=== PATIENT | female | born 1935 | race Caucasian/White ===

== ENCOUNTER → 2019-06-13 | Outpatient (CLI) | payer MEDICARE ==
[~2019-06-13] MED LIST: ADVAIR 100-501 EACH; AMIODARONE HCL200 MG PO; AMLODIPINE BESYL5 MG PO; ASPIR 8181 MG PO; BUSPIRONE HCL10 MG PO; BUSPIRONE HCL5 MG PO; CATAPRES-TTS 31 EA TD; CLONIDINE HCL0.1 MG PO; COLACE100 MG PO; DOCUSATE SODIU100 MG PO; LASIX20 MG PO; LEVAQUIN250 MG PO; LEVOTHYROXINE88 MCG PO; LIDODERM700 MG TD; LOPERAMIDE2 MG PO; LOSARTAN POTAS100 MG PO; MECLIZINE HCL12.5 MG PO; METOPROLOL TART25 MG PO; METRONIDAZOLE500 MG PO; MONTELUKAST SOD10 MG PO; MULTI-VITAMIN1 EACH PO; NEURONTIN100 MG PO; NIFEDIPINE XL30 MG PO; NORCO 5-325 TA1 EACH PO; OMEPRAZOLE40 MG PO; PEPCID20 MG PO; PHENERGAN25 MG/1 ML PO; SUCRALFATE1 GM PO; TEMAZEPAM15 MG PO; TIZANIDINE HCL4 MG PO; ULTRAM50 MG PO; VITAMIN D400 UNIT PO; XANAX0.5 MG PO; eliquis
--- NOTE | 2019-06-13 15:31 | Diagnostic Imaging Report ---
EXAMINATION: CHEST 2 VIEWS INDICATION: Cough COMPARISON: None FINDINGS: LINES/TUBES:None LUNGS:The lungs are well-inflated. No focal consolidation or pulmonary edema. PLEURA:No pleural effusion or pneumothorax. MEDIASTINUM:The cardiomediastinal silhouette appears normal in size and shape. Atherosclerotic calcifications of the thoracic aorta. BONES/SOFT TISSUES:No acute osseous injury. Right shoulder hardware. Mild diffuse osteopenia. ABDOMEN:No free air under the diaphragm. IMPRESSION: No focal pneumonia or pulmonary edema. Signed by: Ila Quiroz MD on 06/13/2019 3:28 PM
== END ==
LOC: RAD 14:39
PROVIDERS: ATTEND Family Medicine
DX: J44.9 Chronic obstructive pulmonary disease, unspecified (principal)
CPT/HCPCS: 71046

== ENCOUNTER 2020-05-05 14:34 | Inpatient (IN) | payer MEDICARE ==
[~2020-05-05] VITALS: Ht 144.8 cm; Wt 48.8 kg
[2020-05-05] MEDS ORDERED: FENTANYL CITRATE/PF 100MCG/2 ML INJ IV ONE (15:00)
[2020-05-05 16:08] LABS: BASOPHILS % 0.5 % (0.0-1.0); EOSINOPHILS # (AUTO) 0.4 (0.0-0.4); EOSINOPHILS % 7.1 % (0.0-6.0); HEMATOCRIT 35.8 % (34.2-44.1); HEMOGLOBIN 11.5 g/dL (12.0-16.0); LYMPHOCYTES # (AUTO) 1.6 (1.0-3.2); LYMPHOCYTES % 29.2 % (18.0-39.1); MEAN CORPUSCULAR HEMOGLOBIN 33.2 pg (28-32); MEAN CORPUSCULAR HGB CONC 32.1 g/dL (31-35); MEAN CORPUSCULAR VOLUME 103.5 fL (81-99); MONOCYTES # (AUTO) 0.5 (0.2-0.8); MONOCYTES % 8.5 % (4.4-11.3); NEUTROPHILS % 54.5 % (38.7-80.0); PLATELET COUNT 280 x10e3/uL (140-360); RED BLOOD COUNT 3.46 x10e6/uL (3.6-5.1); RED CELL DISTRIBUTION WIDTH 13.6 % (11.7-14.4)
[2020-05-05 16:12] LABS: CLARITY,URINE SL CLOUDY (CLEAR); COLOR,URINE YELLOW (YELLOW); KETONES,URINE NEGATIVE (NEGATIVE); LEUKOCYTE ESTERASE ,URINE NEGATIVE (NEGATIVE); NITRITE,URINE NEGATIVE (NEGATIVE); PROTEIN,URINE DIPSTICK TRACE (NEGATIVE); URINE UROBILINOGEN 0.2 mg/dL (0.2 - 1)
[2020-05-05 16:25] LABS: AMORPHOUS SEDIMENT,URINE FEW (FEW); BACTERIA,URINE MODERATE /HPF; EPITHELIAL CELLS,URINE MODERATE /LPF
[2020-05-05 16:31] LABS: ALBUMIN 3.7 g/dL (3.5-5.0); ANION GAP 13.8 mmol/L (8-16); CALCIUM 9.3 mg/dL (8.4-10.2); CREATININE, SERUM 0.96 mg/dL (0.57-1.11); POTASSIUM 4.8 mmol/L (3.5-5.1)
[2020-05-05] MEDS: ONDANSETRON HCL INJ 2MG/ML 2ML 2 MG/ML VIAL IV PRN (17:06)
[2020-05-05] MEDS: MORPHINE SULFATE INJ 2 MG/ML SYR IV PRN (17:06)
[2020-05-05] MEDS ORDERED: LABETALOL HCL100 MG PO (17:12)
[2020-05-05] MEDS ORDERED: AMITRIPTYLINE H10 MG PO (17:12)
[2020-05-05 20:20] VITALS: BP 156/60
[2020-05-05 20:47] VITALS: BP 157/66
[2020-05-05] MEDS: ALPRAZOLAM 0.5 MG TAB PO PRN ×2 (20:50→21:04)
[2020-05-05] MEDS ORDERED: AMITRIPTYLINE HCL 10 MG TAB PO SCH (21:00)
[2020-05-05] MEDS ORDERED: MAGNESIUM HYDROXIDE 30 ML UDC PO PRN (22:00)
[2020-05-05] MEDS ORDERED: CEFTRIAXONE SOD 1 GM 50 ML IV SCH (22:00)
[2020-05-05] MEDS ORDERED: ASPIRIN325 MG PO (22:20)
[2020-05-05] MEDS ORDERED: PHILLIPS' COLO1 EACH PO (22:20)
[2020-05-05] MEDS ORDERED: CENTRUM ADULTS1 EACH PO (22:20)
[2020-05-05] MEDS ORDERED: HYDROCODON-ACE1 EA12 PO (22:20)
[2020-05-05 22:52] VITALS: BP 157/66
[2020-05-05] MEDS: MIRTAZAPINE 15 MG TAB PO SCH (23:00)
[2020-05-05] MEDS: TRAMADOL HCL 50 MG TAB PO SCH (23:00)
[2020-05-05] MEDS: CEFTRIAXONE SOD 1 GM in SODIUM CHLORIDE 0.9% 50ML 50 ML IV SCH (23:58)
[2020-05-06 00:10] VITALS: BP 157/60
[2020-05-06] MEDS ORDERED: SODIUM CHLORIDE 0.9% 250ML 250 ML ONE (00:10)
[2020-05-06] MEDS: MORPHINE SULFATE INJ 2 MG/ML SYR IV PRN ×2 (00:50→06:43)
[2020-05-06] MEDS ORDERED: LIDOPATCH1 EACH TOP (02:13)
[2020-05-06] MEDS ORDERED: CALCIUM + VITA1 EACH (02:13)
[2020-05-06 04:00] VITALS: BP 165/72
[2020-05-06] MEDS: TRAMADOL HCL 50 MG TAB PO SCH ×3 (06:00→23:00)
[2020-05-06] MEDS ORDERED: LEVOTHYROXINE SODIUM 100 MCG TAB PO SCH (06:00)
[2020-05-06 06:35] LABS: ANION GAP 11.9 mmol/L (8-16); BLOOD UREA NITROGEN 13 mg/dL (7-26); BUN/CREATININE RATIO 15 (6-25); CALCIUM 9.2 mg/dL (8.4-10.2); CARBON DIOXIDE 26 mmol/L (22-29); CHLORIDE 103 mmol/L (98-107); CREATININE, SERUM 0.85 mg/dL (0.57-1.11); EST GLOMERULAR FILTRATION RATE > 60 ML/MIN (60-); GLUCOSE 69 mg/dL (74-118); POTASSIUM 3.9 mmol/L (3.5-5.1); SODIUM 137 mmol/L (136-145)
[2020-05-06] MEDS: SALMETEROL/FLUTICASONE 100/50 INH SCH ×2 (07:53→17:53)
[2020-05-06] MEDS: NIFEDIPINE CR 30 MG TAB PO SCH (08:14)
[2020-05-06] MEDS: BUSPIRONE HCL 10 MG TABLET PO SCH (08:14)
[2020-05-06] MEDS: GABAPENTIN 100 MG CAP PO SCH ×3 (08:14→20:04)
[2020-05-06] MEDS: PANTOPRAZOLE SOD 40 MG TABEC PO SCH (08:14)
[2020-05-06] MEDS: LABETALOL HCL 100 MG TAB PO SCH ×2 (08:15→17:00)
[2020-05-06] MEDS: SENNA-S TABLET PO SCH ×2 (08:15→17:53)
[2020-05-06] MEDS: TIZANIDINE HCL 4 MG TAB PO SCH ×2 (08:15→17:57)
[2020-05-06 08:40] VITALS: BP 197/67
[2020-05-06] MEDS ORDERED: ASPIRIN 81 MG CHEW TAB PO SCH (09:00)
[2020-05-06 09:09] VITALS: BP 197/67
[2020-05-06] MEDS ORDERED: LEVOTHYROXINE SODIUM 50 MCG TAB PO ONE (10:00)
[2020-05-06] MEDS: HYDROCODONE/APAP 5MG-325MG TAB PO PRN ×2 (11:53→19:32)
[2020-05-06] MEDS: FENTANYL 25 MCG/HR PATCH TOP SCH (11:53)
[2020-05-06 13:25] VITALS: BP 112/56
[2020-05-06] MEDS: ENOXAPARIN SOD INJ 40 MG/0.4 ML SYR SC SCH (17:57)
[2020-05-06 18:24] VITALS: BP 118/51
[2020-05-06] MEDS: MIRTAZAPINE 15 MG TAB PO SCH (20:04)
[2020-05-06] MEDS: CEFTRIAXONE SOD 1 GM in SODIUM CHLORIDE 0.9% 50ML 50 ML IV SCH (22:30)
[2020-05-07] VITALS: BP 150/80
[2020-05-07] MEDS: TRAMADOL HCL 50 MG TAB PO SCH ×4 (00:20→21:13)
[2020-05-07] MEDS: MORPHINE SULFATE INJ 2 MG/ML SYR IV PRN (00:40)
[2020-05-07] MEDS: LEVOTHYROXINE SODIUM 50 MCG TAB PO SCH (06:08)
[2020-05-07] MEDS: SALMETEROL/FLUTICASONE 100/50 INH SCH ×2 (07:18→21:20)
[2020-05-07 07:20] VITALS: BP 150/80
[2020-05-07 08:31] VITALS: BP 155/61
[2020-05-07] MEDS: PANTOPRAZOLE SOD 40 MG TABEC PO SCH (09:03)
[2020-05-07] MEDS: GABAPENTIN 100 MG CAP PO SCH ×3 (09:04→21:00)
[2020-05-07] MEDS: BUSPIRONE HCL 10 MG TABLET PO SCH (09:04)
[2020-05-07] MEDS: SENNA-S TABLET PO SCH ×2 (09:05→17:00)
[2020-05-07] MEDS: NIFEDIPINE CR 30 MG TAB PO SCH (09:05)
[2020-05-07] MEDS: LABETALOL HCL 100 MG TAB PO SCH ×2 (09:06→17:00)
[2020-05-07] MEDS: TIZANIDINE HCL 4 MG TAB PO SCH ×2 (09:06→17:00)
[2020-05-07 12:09] VITALS: BP 128/61
[2020-05-07 16:10] VITALS: BP 124/57
[2020-05-07] MEDS: ENOXAPARIN SOD INJ 40 MG/0.4 ML SYR SC SCH (17:00)
[2020-05-07 20:21] VITALS: BP 112/55
[2020-05-07] MEDS: MIRTAZAPINE 15 MG TAB PO SCH (21:00)
[2020-05-07] MEDS: CEFTRIAXONE SOD 1 GM in SODIUM CHLORIDE 0.9% 50ML 50 ML IV SCH (22:30)
[2020-05-08] VITALS (7 sets, daily range): BP systolic 98–162; BP diastolic 46–62
[2020-05-08] MEDS: LEVOTHYROXINE SODIUM 50 MCG TAB PO SCH (05:07)
[2020-05-08] MEDS: TRAMADOL HCL 50 MG TAB PO SCH ×3 (05:07→21:19)
[2020-05-08] MEDS: SALMETEROL/FLUTICASONE 100/50 INH SCH ×2 (06:27→20:45)
[2020-05-08] MEDS: PANTOPRAZOLE SOD 40 MG TABEC PO SCH (08:44)
[2020-05-08] MEDS: BUSPIRONE HCL 10 MG TABLET PO SCH (08:44)
[2020-05-08] MEDS: GABAPENTIN 100 MG CAP PO SCH ×3 (08:44→21:19)
[2020-05-08] MEDS: SENNA-S TABLET PO SCH ×2 (08:45→16:47)
[2020-05-08] MEDS: TIZANIDINE HCL 4 MG TAB PO SCH ×2 (08:45→16:48)
[2020-05-08] MEDS: LABETALOL HCL 100 MG TAB PO SCH ×3 (09:00→16:48)
[2020-05-08] MEDS: HYDROCODONE/APAP 5MG-325MG TAB PO PRN (09:40)
[2020-05-08] MEDS: MORPHINE SULFATE INJ 2 MG/ML SYR IV PRN ×3 (13:40→23:45)
[2020-05-08] MEDS: NIFEDIPINE CR 30 MG TAB PO SCH (16:43)
[2020-05-08] MEDS: ENOXAPARIN SOD INJ 40 MG/0.4 ML SYR SC SCH (16:49)
[2020-05-08] MEDS: MIRTAZAPINE 15 MG TAB PO SCH (21:19)
[2020-05-08] MEDS: CEFTRIAXONE SOD 1 GM in SODIUM CHLORIDE 0.9% 50ML 50 ML IV SCH (21:37)
[2020-05-08] MEDS: ALPRAZOLAM 0.5 MG TAB PO PRN (23:45)
[2020-05-09] VITALS: BP 153/60
[2020-05-09 04:00] VITALS: BP 134/48
[2020-05-09] MEDS: LEVOTHYROXINE SODIUM 50 MCG TAB PO SCH (05:48)
[2020-05-09] MEDS: TRAMADOL HCL 50 MG TAB PO SCH ×3 (06:01→21:43)
[2020-05-09 06:23] LABS: BASOPHILS # (AUTO) 0.1 (0.0-0.1); BASOPHILS % 1.1 % (0.0-1.0); EOSINOPHILS # (AUTO) 0.4 (0.0-0.4); EOSINOPHILS % 8.9 % (0.0-6.0); HEMATOCRIT 33.2 % (34.2-44.1); HEMOGLOBIN 10.4 g/dL (12.0-16.0); LYMPHOCYTES # (AUTO) 1.8 (1.0-3.2); LYMPHOCYTES % 38.9 % (18.0-39.1); MEAN CORPUSCULAR HEMOGLOBIN 33.2 pg (28-32); MEAN CORPUSCULAR HGB CONC 31.3 g/dL (31-35); MEAN CORPUSCULAR VOLUME 106.1 fL (81-99); MONOCYTES # (AUTO) 0.6 (0.2-0.8); MONOCYTES % 11.7 % (4.4-11.3); NEUTROPHILS # (AUTO) 1.9 (2.1-6.9); NEUTROPHILS % 39.4 % (38.7-80.0); PLATELET COUNT 246 x10e3/uL (140-360); RED BLOOD COUNT 3.13 x10e6/uL (3.6-5.1); RED CELL DISTRIBUTION WIDTH 13.8 % (11.7-14.4)
[2020-05-09 06:55] LABS: ANION GAP 13.2 mmol/L (8-16); CREATININE, SERUM 0.93 mg/dL (0.57-1.11); POTASSIUM 4.2 mmol/L (3.5-5.1)
[2020-05-09] MEDS: SALMETEROL/FLUTICASONE 100/50 INH SCH ×2 (07:20→17:13)
[2020-05-09 08:00] VITALS: BP 132/54
[2020-05-09] MEDS: GABAPENTIN 100 MG CAP PO SCH ×3 (09:15→21:43)
[2020-05-09] MEDS: BUSPIRONE HCL 10 MG TABLET PO SCH (09:15)
[2020-05-09] MEDS: PANTOPRAZOLE SOD 40 MG TABEC PO SCH (09:15)
[2020-05-09] MEDS: SENNA-S TABLET PO SCH ×2 (09:16→16:51)
[2020-05-09] MEDS: NIFEDIPINE CR 30 MG TAB PO SCH (09:16)
[2020-05-09] MEDS: TIZANIDINE HCL 4 MG TAB PO SCH ×2 (09:17→16:53)
[2020-05-09] MEDS: FENTANYL 25 MCG/HR PATCH TOP SCH (09:21)
[2020-05-09] MEDS: LABETALOL HCL 100 MG TAB PO SCH ×2 (09:21→16:52)
[2020-05-09 10:01] VITALS: BP 132/54
[2020-05-09 16:00] VITALS: BP 134/38
[2020-05-09] MEDS: ENOXAPARIN SOD INJ 40 MG/0.4 ML SYR SC SCH (16:53)
[2020-05-09] MEDS: HYDROCODONE/APAP 5MG-325MG TAB PO PRN ×2 (19:37→20:03)
[2020-05-09 20:00] VITALS: BP 153/60
[2020-05-09] MEDS: CEFTRIAXONE SOD 1 GM in SODIUM CHLORIDE 0.9% 50ML 50 ML IV SCH (21:43)
[2020-05-09] MEDS: MIRTAZAPINE 15 MG TAB PO SCH (21:43)
[2020-05-09] MEDS: ALPRAZOLAM 0.5 MG TAB PO PRN (23:06)
[2020-05-09] MEDS: MORPHINE SULFATE INJ 2 MG/ML SYR IV PRN (23:06)
[2020-05-10] VITALS (8 sets, daily range): BP systolic 104–145; BP diastolic 46–65
[2020-05-10] MEDS: TRAMADOL HCL 50 MG TAB PO SCH ×3 (06:00→21:40)
[2020-05-10] MEDS: LEVOTHYROXINE SODIUM 50 MCG TAB PO SCH (06:00)
[2020-05-10] MEDS: SALMETEROL/FLUTICASONE 100/50 INH SCH ×2 (06:50→18:35)
[2020-05-10] MEDS: BUSPIRONE HCL 10 MG TABLET PO SCH (08:42)
[2020-05-10] MEDS: LABETALOL HCL 100 MG TAB PO SCH ×2 (08:42→16:52)
[2020-05-10] MEDS: GABAPENTIN 100 MG CAP PO SCH ×3 (08:42→21:40)
[2020-05-10] MEDS: SENNA-S TABLET PO SCH ×2 (08:42→16:51)
[2020-05-10] MEDS: NIFEDIPINE CR 30 MG TAB PO SCH (08:42)
[2020-05-10] MEDS: TIZANIDINE HCL 4 MG TAB PO SCH ×2 (08:43→16:52)
[2020-05-10] MEDS: PANTOPRAZOLE SOD 40 MG TABEC PO SCH (09:36)
[2020-05-10] MEDS: HYDROCODONE/APAP 5MG-325MG TAB PO PRN ×2 (11:11→15:45)
[2020-05-10] MEDS: FENTANYL 50 MCG/HR PATCH TOP SCH (12:02)
[2020-05-10] MEDS: LIDOCAINE 4% PATCH TP SCH (12:02)
[2020-05-10] MEDS: ENOXAPARIN SOD INJ 40 MG/0.4 ML SYR SC SCH (16:52)
[2020-05-10] MEDS: MIRTAZAPINE 15 MG TAB PO SCH (21:40)
[2020-05-11] VITALS (8 sets, daily range): BP systolic 106–138; BP diastolic 47–94
[2020-05-11] MEDS: HYDROCODONE/APAP 5MG-325MG TAB PO PRN (00:29)
[2020-05-11 06:08] LABS: BASOPHILS # (AUTO) 0.1 (0.0-0.1); BASOPHILS % 1.1 % (0.0-1.0); EOSINOPHILS # (AUTO) 0.5 (0.0-0.4); EOSINOPHILS % 11.4 % (0.0-6.0); HEMATOCRIT 33.7 % (34.2-44.1); HEMOGLOBIN 10.7 g/dL (12.0-16.0); LYMPHOCYTES % 42.3 % (18.0-39.1); MEAN CORPUSCULAR HGB CONC 31.8 g/dL (31-35); MONOCYTES # (AUTO) 0.5 (0.2-0.8); MONOCYTES % 9.9 % (4.4-11.3); NEUTROPHILS # (AUTO) 1.7 (2.1-6.9); NEUTROPHILS % 35.3 % (38.7-80.0); PLATELET COUNT 283 x10e3/uL (140-360); RED BLOOD COUNT 3.24 x10e6/uL (3.6-5.1); RED CELL DISTRIBUTION WIDTH 13.4 % (11.7-14.4)
[2020-05-11] MEDS: TRAMADOL HCL 50 MG TAB PO SCH ×3 (06:19→22:00)
[2020-05-11] MEDS: PANTOPRAZOLE SOD 40 MG TABEC PO SCH (06:19)
[2020-05-11] MEDS: LEVOTHYROXINE SODIUM 50 MCG TAB PO SCH (06:19)
[2020-05-11 06:35] LABS: ANION GAP 11.9 mmol/L (8-16); BLOOD UREA NITROGEN 21 mg/dL (7-26); BUN/CREATININE RATIO 25 (6-25); CALCIUM 9.3 mg/dL (8.4-10.2); CARBON DIOXIDE 27 mmol/L (22-29); CHLORIDE 104 mmol/L (98-107); CREATININE, SERUM 0.84 mg/dL (0.57-1.11); EST GLOMERULAR FILTRATION RATE > 60 ML/MIN (60-); GLUCOSE 84 mg/dL (74-118); POTASSIUM 4.9 mmol/L (3.5-5.1); SODIUM 138 mmol/L (136-145)
[2020-05-11] MEDS: SALMETEROL/FLUTICASONE 100/50 INH SCH ×2 (08:15→17:00)
[2020-05-11] MEDS: SENNA-S TABLET PO SCH ×2 (09:00→17:42)
[2020-05-11 09:14] LABS: INR 0.85; PROTHROMBIN TIME 12.1 seconds (11.9-14.5)
[2020-05-11 09:15] LABS: PARTIAL THROMBOPLASTIN TIME 34.3 seconds (23.8-35.5)
[2020-05-11] MEDS: NIFEDIPINE CR 30 MG TAB PO SCH (09:19)
[2020-05-11] MEDS: GABAPENTIN 100 MG CAP PO SCH ×3 (09:19→22:00)
[2020-05-11] MEDS: TIZANIDINE HCL 4 MG TAB PO SCH ×2 (09:20→17:44)
[2020-05-11] MEDS: LABETALOL HCL 100 MG TAB PO SCH ×2 (09:20→17:44)
[2020-05-11] MEDS: BUSPIRONE HCL 10 MG TABLET PO SCH (09:20)
[2020-05-11] MEDS: LIDOCAINE 4% PATCH TP SCH (09:20)
[2020-05-11] MEDS: ENOXAPARIN SOD INJ 40 MG/0.4 ML SYR SC SCH (17:44)
[2020-05-11] MEDS: MIRTAZAPINE 15 MG TAB PO SCH (22:00)
[2020-05-12] VITALS (8 sets, daily range): BP systolic 97–131; BP diastolic 40–60
[2020-05-12] MEDS: HYDROCODONE/APAP 5MG-325MG TAB PO PRN (00:10)
[2020-05-12] MEDS: LEVOTHYROXINE SODIUM 50 MCG TAB PO SCH (06:14)
[2020-05-12] MEDS: TRAMADOL HCL 50 MG TAB PO SCH ×2 (06:14→14:00)
[2020-05-12] MEDS: GABAPENTIN 100 MG CAP PO SCH ×3 (09:31→21:23)
[2020-05-12] MEDS: PANTOPRAZOLE SOD 40 MG TABEC PO SCH (09:31)
[2020-05-12] MEDS: BUSPIRONE HCL 10 MG TABLET PO SCH (09:31)
[2020-05-12] MEDS: SENNA-S TABLET PO SCH ×2 (09:32→18:19)
[2020-05-12] MEDS: NIFEDIPINE CR 30 MG TAB PO SCH (09:32)
[2020-05-12] MEDS: LABETALOL HCL 100 MG TAB PO SCH ×2 (09:33→18:20)
[2020-05-12] MEDS: LIDOCAINE 4% PATCH TP SCH (09:36)
[2020-05-12] MEDS: TIZANIDINE HCL 4 MG TAB PO SCH ×2 (09:36→18:20)
[2020-05-12] MEDS: ENOXAPARIN SOD INJ 40 MG/0.4 ML SYR SC SCH (18:20)
[2020-05-12] MEDS: SALMETEROL/FLUTICASONE 100/50 INH SCH ×2 (21:20→22:17)
[2020-05-12] MEDS: MIRTAZAPINE 15 MG TAB PO SCH (21:23)
[2020-05-13] MEDS: LEVOTHYROXINE SODIUM 50 MCG TAB PO SCH (05:07)
[2020-05-13 05:26] VITALS: BP 114/43
[2020-05-13] MEDS ORDERED: MORPHINE SULFATE INJ 4 MG/ML INJ 1ML IV PRN (06:00)
[2020-05-13] MEDS ORDERED: HYDROCODONE/APAP 5MG-325MG TAB PO PRN (06:00)
[2020-05-13] MEDS: ONDANSETRON HCL INJ 2MG/ML 2ML 2 MG/ML VIAL IV PRN ×2 (06:17→22:37)
[2020-05-13] MEDS: SALMETEROL/FLUTICASONE 100/50 INH SCH ×2 (07:10→17:00)
[2020-05-13] MEDS ORDERED: ACETAMINOPHEN 1000 MG/100 ML 100 ML IV ONE (07:24)
[2020-05-13] MEDS ORDERED: LIDOCAINE HCL (LTA) 4 ML SOLN ONE (07:24)
[2020-05-13] MEDS ORDERED: IBUPROFEN 800MG/ 200ML 200 ML IV ONE (07:25)
[2020-05-13] MEDS: PANTOPRAZOLE SOD 40 MG TABEC PO SCH (07:30)
[2020-05-13] MEDS ORDERED: VANCOMYCIN HCL 1 GM VIAL ONE (08:13)
[2020-05-13] MEDS ORDERED: THROMBIN FOR SOLN 5,000 UNIT VIAL ONE (08:13)
[2020-05-13] MEDS ORDERED: LIDOCAINE 1% W/EPINEPHRINE 20 ML VIAL ONE (08:13)
[2020-05-13 08:55] VITALS: BP 140/58
[2020-05-13] MEDS: TIZANIDINE HCL 4 MG TAB PO SCH ×2 (09:00→17:17)
[2020-05-13] MEDS: GABAPENTIN 100 MG CAP PO SCH ×3 (09:00→22:36)
[2020-05-13] MEDS: SENNA-S TABLET PO SCH ×2 (09:00→17:16)
[2020-05-13] MEDS: LIDOCAINE 4% PATCH TP SCH (09:00)
[2020-05-13] MEDS: LABETALOL HCL 100 MG TAB PO SCH ×2 (09:00→17:16)
[2020-05-13 09:26] VITALS: BP 125/81
[2020-05-13] MEDS ORDERED: ACETAMINOPHEN 325 MG TAB PO PRN (11:15)
[2020-05-13] MEDS ORDERED: PROMETHAZINE HCL (IM) 25 MG/ML VIAL IM PRN (11:15)
[2020-05-13] MEDS ORDERED: OXYCODONE/ACETAMINOPHEN 5-325 1 EACH TABLET PO PRN (11:15)
[2020-05-13] MEDS ORDERED: MAGNESIUM/ALUMINUM/SIMETHICONE 30 ML UDC PO PRN (11:15)
[2020-05-13] MEDS ORDERED: CARISOPRODOL 350 MG TAB PO PRN (11:15)
[2020-05-13] MEDS ORDERED: CEPACOL SORE THROAT LOZENGES PO PRN (11:15)
[2020-05-13] MEDS ORDERED: MORPHINE SULFATE 5 MG/ML VIAL IV PRN (11:15)
[2020-05-13] MEDS ORDERED: FENTANYL CITRATE/PF 100MCG/2 ML INJ ONE (11:43)
[2020-05-13] MEDS: BUSPIRONE HCL 10 MG TABLET PO SCH (12:39)
[2020-05-13] MEDS: LACTATED RINGER'S 1,000 ML IV SCH ×2 (12:45→19:35)
[2020-05-13] MEDS: FENTANYL 50 MCG/HR PATCH TOP SCH (12:46)
[2020-05-13] MEDS: NIFEDIPINE CR 30 MG TAB PO SCH (12:47)
[2020-05-13] MEDS ORDERED: PROPOFOL IV EMULSION 10 MG/ML 20 ML VIAL ONE (13:46)
[2020-05-13] MEDS ORDERED: NEOSTIGMINE 1 MG/ML 10ML VIAL ONE (13:46)
[2020-05-13] MEDS ORDERED: ONDANSETRON HCL INJ 2MG/ML 2ML 2 MG/ML VIAL ONE (13:46)
[2020-05-13] MEDS ORDERED: ROCURONIUM BROMIDE 10 MG/ML 5ML VIAL IV ONE (13:46)
[2020-05-13] MEDS ORDERED: DEXAMETHASONE SOD PHOS INJ 4 MG/ML VIAL ONE (13:46)
[2020-05-13] MEDS ORDERED: GLYCOPYRROLATE INJ 0.2 MG/ML VIAL ONE (13:46)
[2020-05-13] MEDS ORDERED: LIDOCAINE HCL 2% JELLY 5 ML TUBE ONE (13:46)
[2020-05-13] MEDS ORDERED: LIDOCAINE HCL 2% LOCAL INJ 5 ML SDV VIAL INJ ONE (13:46)
[2020-05-13] MEDS ORDERED: SEVOFLURANE INHAL SOLN 250 ML PEN BTL ONE (13:46)
[2020-05-13] MEDS: TRAMADOL HCL 50 MG TAB PO PRN (15:45)
[2020-05-13 16:50] VITALS: BP 133/58
[2020-05-13] MEDS: CEFAZOLIN SOD 1 GM/NS 50ML 50 ML IV SCH (17:24)
[2020-05-13 20:00] VITALS: BP 133/58
[2020-05-13] MEDS: MIRTAZAPINE 15 MG TAB PO SCH (20:44)
[2020-05-13] MEDS ORDERED: ZOLPIDEM TARTRATE 5 MG TAB PO PRN (21:00)
[2020-05-13 21:05] VITALS: BP 133/58
[2020-05-13] MEDS: MORPHINE SULFATE INJ 2 MG/ML SYR IV PRN (22:36)
[2020-05-14] MEDS: CEFAZOLIN SOD 1 GM/NS 50ML 50 ML IV SCH ×2 (01:54→10:36)
[2020-05-14] MEDS: LACTATED RINGER'S 1,000 ML IV SCH (01:54)
[2020-05-14] MEDS: MORPHINE SULFATE INJ 2 MG/ML SYR IV PRN (03:45)
[2020-05-14] MEDS: ONDANSETRON HCL INJ 2MG/ML 2ML 2 MG/ML VIAL IV PRN (03:45)
[2020-05-14 04:00] VITALS: BP 145/59
[2020-05-14] MEDS: LEVOTHYROXINE SODIUM 50 MCG TAB PO SCH (06:09)
[2020-05-14 07:46] VITALS: BP 103/43
[2020-05-14] MEDS: GABAPENTIN 100 MG CAP PO SCH (08:33)
[2020-05-14] MEDS: NIFEDIPINE CR 30 MG TAB PO SCH (08:33)
[2020-05-14] MEDS: BUSPIRONE HCL 10 MG TABLET PO SCH (08:33)
[2020-05-14] MEDS: TIZANIDINE HCL 4 MG TAB PO SCH (08:33)
[2020-05-14] MEDS: SENNA-S TABLET PO SCH (08:33)
[2020-05-14] MEDS: PANTOPRAZOLE SOD 40 MG TABEC PO SCH (08:33)
[2020-05-14] MEDS: LABETALOL HCL 100 MG TAB PO SCH (08:42)
[2020-05-14 09:06] VITALS: BP 103/43
[2020-05-14] MEDS: TRAMADOL HCL 50 MG TAB PO PRN (09:17)
[2020-05-14] MEDS: LIDOCAINE 4% PATCH TP SCH (10:55)
[2020-05-14] MEDS ORDERED: ONDANSETRON HCL 4 MG ORAL DISINTEGRATING TAB PO PRN (13:30)
[2020-05-14 14:10] VITALS: BP 101/48
[2020-05-14 15:42] VITALS: BP 145/90
== END 2020-05-14 17:40 | DRG 516 ==
LOC: ER 14:53 → ERHOLD 16:56 → MED/SURG3 19:45
PROVIDERS: ADMIT Internal Medicine; ATTEND Internal Medicine
PROC: 01NB0ZZ Release Lumbar Nerve, Open Approach (ICD-10-PCS; principal; 2020-05-13 10:00)
DX: M48.062 Spinal stenosis, lumbar region with neurogenic claudication (principal); N39.0 Urinary tract infection, site not specified; R62.7 Adult failure to thrive; M54.9 Dorsalgia, unspecified; M43.16 Spondylolisthesis, lumbar region; Z88.2 Allergy status to sulfonamides; Z88.8 Allergy status to other drugs, medicaments and biological substances; Z91.81 History of falling; F03.90 Unspecified dementia, unspecified severity, without behavioral disturbance, psychotic disturbance, mood disturbance, and anxiety; M89.49 Other hypertrophic osteoarthropathy, multiple sites; E03.9 Hypothyroidism, unspecified; Z20.822 Contact with and (suspected) exposure to COVID-19
CPT/HCPCS: 36415; 72020; 72131; 72146; 72148; 72192; 80048; 80053; 81001; 82607; 82948; 84443; 84484; 85025; 85610; 85730; 86850; 86900; 88304; 88311; 93005; 94664; 97139; 99251; 99284; J0690; J0696; J1100; J1650; J2001; J2270; J2405; J2710; J3010; J3370; J7050; J7121; U0002

== ENCOUNTER → 2021-06-20 | Day surgery (SDC) | payer MEDICARE ==
[~2021-06-20] MED LIST changes: +AMITRIPTYLINE H10 MG PO; +ASPIRIN325 MG PO; +CALCIUM + VITA1 EACH; +CENTRUM ADULTS1 EACH PO; +HYDROCODON-ACE1 EA12 PO; +LABETALOL HCL100 MG PO; +LIDOCAINE HCL 2% LOCAL INJ 5 ML SDV VIAL INJ ONE; +LIDOPATCH1 EACH TOP; +PHILLIPS' COLO1 EACH PO; +PROPOFOL IV EMULSION 10 MG/ML 20 ML VIAL ONE
[2021-06-20 14:30] VITALS: BP 159/81
== END | disposition home or self-care (01) ==
LOC: OR 10:27
PROVIDERS: ATTEND Internal Medicine Gastroenterology
DX: R63.4 Abnormal weight loss (principal); K29.50 Unspecified chronic gastritis without bleeding; K21.9 Gastro-esophageal reflux disease without esophagitis; K44.9 Diaphragmatic hernia without obstruction or gangrene; K59.00 Constipation, unspecified; R07.89 Other chest pain; I10 Essential (primary) hypertension; E03.9 Hypothyroidism, unspecified; Z88.2 Allergy status to sulfonamides; Z01.810 Encounter for preprocedural cardiovascular examination; Z01.812 Encounter for preprocedural laboratory examination; Z20.822 Contact with and (suspected) exposure to COVID-19; Z79.82 Long term (current) use of aspirin; Z79.899 Other long term (current) drug therapy; Z87.891 Personal history of nicotine dependence
CPT/HCPCS: 43239; 93005; J2001; J2704; U0002

== ENCOUNTER 2021-09-13 12:37 | Inpatient (IN) | payer MEDICARE ==
[~2021-09-13] VITALS: Ht 144.8 cm; Wt 49.5 kg
[~2021-09-13 12:37] MED LIST changes: -LIDOCAINE HCL 2% LOCAL INJ 5 ML SDV VIAL INJ ONE; -PROPOFOL IV EMULSION 10 MG/ML 20 ML VIAL ONE
[2021-09-13 14:13] LABS: BASOPHILS % 0.2 % (0.0-1.0); HEMATOCRIT 37.2 % (34.2-44.1); HEMOGLOBIN 13.4 g/dL (12.0-16.0); LYMPHOCYTES # (AUTO) 0.6 (1.0-3.2); LYMPHOCYTES % 4.5 % (18.0-39.1); MEAN CORPUSCULAR HEMOGLOBIN 33.3 pg (28-32); MEAN CORPUSCULAR VOLUME 92.3 fL (81-99); MONOCYTES # (AUTO) 0.6 (0.2-0.8); NEUTROPHILS # (AUTO) 11.5 (2.1-6.9); NEUTROPHILS % 89.8 % (38.7-80.0); PLATELET COUNT 494 x10e3/uL (140-360); RED BLOOD COUNT 4.03 x10e6/uL (3.6-5.1); RED CELL DISTRIBUTION WIDTH 12.4 % (11.7-14.4)
[2021-09-13 14:19] LABS: CLARITY,URINE SL CLOUDY (CLEAR); COLOR,URINE YELLOW (YELLOW); KETONES,URINE 2+ (NEGATIVE); LEUKOCYTE ESTERASE ,URINE LARGE (NEGATIVE); NITRITE,URINE POSITIVE (NEGATIVE); PROTEIN,URINE DIPSTICK 2+ (NEGATIVE); URINE UROBILINOGEN 0.2 mg/dL (0.2 - 1)
[2021-09-13 14:32] LABS: WBC,URINE (MAN) 21-50 /HPF (0-5)
[2021-09-13 14:33] LABS: RBC,URINE 0-5 /HPF (0-5)
[2021-09-13 14:34] LABS: ALBUMIN 3.3 g/dL (3.5-5.0); ALBUMIN/GLOBULIN RATIO 0.6 (0.8-2.0); AMORPHOUS SEDIMENT,URINE MODERATE (FEW); ANION GAP 18.8 mmol/L (8-16); BACTERIA,URINE MODERATE /HPF; CALCIUM 11.3 mg/dL (8.4-10.2); CREATININE, SERUM 0.78 mg/dL (0.57-1.11)
[2021-09-13 14:37] LABS: POTASSIUM 2.8 mmol/L (3.5-5.1)
[2021-09-13] MEDS ORDERED: CEFTRIAXONE 1 GM VIAL IM ONE (15:00)
[2021-09-13] MEDS ORDERED: POTASSIUM CHLORIDE 10MEQ/100ML 400 ML IV PRN (15:00)
[2021-09-13] MEDS ORDERED: LACTATED RINGER'S 1,000 ML IV ONE (15:00)
[2021-09-13] MEDS ORDERED: ALBUTEROL/IPRATROPIUM 3 ML NEB NEB PRN (15:45)
[2021-09-13] MEDS ORDERED: SODIUM CHLORIDE 0.9% 1000ML 1,000 ML ONE (15:47)
[2021-09-13] MEDS: KCL 20MEQ/.9 SOD CHL 1,000 ML IV SCH (17:42)
[2021-09-13] MEDS ORDERED: ONDANSETRON HCL INJ 2MG/ML 2ML 2 MG/ML VIAL ONE (20:38)
[2021-09-13] MEDS: ONDANSETRON HCL INJ 2MG/ML 2ML 2 MG/ML VIAL IV PRN (20:40)
[2021-09-13 22:11] VITALS: BP 141/67
[2021-09-14] VITALS (8 sets, daily range): BP systolic 140–165; BP diastolic 67–112
[2021-09-14] MEDS: KCL 20MEQ/.9 SOD CHL 1,000 ML IV SCH ×2 (04:46→21:30)
[2021-09-14] MEDS: ONDANSETRON HCL INJ 2MG/ML 2ML 2 MG/ML VIAL IV PRN (04:46)
[2021-09-14] MEDS ORDERED: METOPROLOL TART50 MG PO (07:54)
[2021-09-14] MEDS ORDERED: LASIX20 MG PO (07:54)
[2021-09-14] MEDS ORDERED: PANTOPRAZOLE SO40 MG PO (07:54)
[2021-09-14] MEDS ORDERED: TRAZODONE HCL50 MG PO (07:54)
[2021-09-14] MEDS ORDERED: METHOCARBAMOL750 MG PO (07:54)
[2021-09-14] MEDS ORDERED: SUCRALFATE1 GM PO (07:54)
[2021-09-14] MEDS ORDERED: BENZONATATE 100 MG CAP PO PRN (08:15)
[2021-09-14] MEDS ORDERED: METHOCARBAMOL 750 MG TAB PO PRN (08:15)
[2021-09-14] MEDS ORDERED: ALBUTEROL/IPRATROPIUM 3 ML NEB NEB PRN (08:15)
[2021-09-14 08:43] LABS: BASOPHILS % 0.3 % (0.0-1.0); HEMATOCRIT 35.8 % (34.2-44.1); HEMOGLOBIN 12.5 g/dL (12.0-16.0); LYMPHOCYTES # (AUTO) 0.8 (1.0-3.2); LYMPHOCYTES % 6.6 % (18.0-39.1); MEAN CORPUSCULAR HGB CONC 34.9 g/dL (31-35); MEAN CORPUSCULAR VOLUME 94.5 fL (81-99); MONOCYTES # (AUTO) 0.8 (0.2-0.8); MONOCYTES % 7.1 % (4.4-11.3); NEUTROPHILS % 85.4 % (38.7-80.0); PLATELET COUNT 442 x10e3/uL (140-360); RED BLOOD COUNT 3.79 x10e6/uL (3.6-5.1); RED CELL DISTRIBUTION WIDTH 12.8 % (11.7-14.4)
[2021-09-14] MEDS ORDERED: MAGNESIUM HYDROXIDE 30 ML UDC PO PRN (08:45)
[2021-09-14] MEDS ORDERED: ASPIRIN 325 MG TAB PO SCH (09:00)
[2021-09-14] MEDS ORDERED: DEXAMETHASONE SOD PHOS INJ 4 MG/ML SDV IV SCH (09:00)
[2021-09-14 09:34] LABS: ANION GAP 14.1 mmol/L (8-16); CALCIUM 9.5 mg/dL (8.4-10.2); CREATININE, SERUM 0.71 mg/dL (0.57-1.11); MAGNESIUM 1.4 MG/DL (1.3-2.1); PHOSPHORUS 1.5 MG/DL (2.3-4.7); POTASSIUM 3.1 mmol/L (3.5-5.1)
[2021-09-14] MEDS: SUCRALFATE 1 GM TAB PO SCH ×2 (10:53→16:23)
[2021-09-14] MEDS: PANTOPRAZOLE SOD 40 MG TABEC PO SCH (10:53)
[2021-09-14] MEDS: APIXAB 2.5 MG TABLET PO SCH ×2 (10:53→16:23)
[2021-09-14] MEDS: MULTIVITAMINS/MINERALS TAB PO SCH (10:53)
[2021-09-14] MEDS: METOPROLOL TARTRATE 50 MG TAB PO SCH ×2 (10:53→16:23)
[2021-09-14] MEDS: GABAPENTIN 100 MG CAP PO SCH ×3 (10:53→21:38)
[2021-09-14] MEDS: BUSPIRONE HCL 10 MG TABLET PO SCH ×2 (10:54→16:23)
[2021-09-14] MEDS: ALPRAZOLAM 0.5 MG TAB PO PRN (10:54)
[2021-09-14] MEDS: NIFEDIPINE CR 30 MG TAB PO SCH (10:54)
[2021-09-14] MEDS: ALBUTEROL/IPRATROPIUM 3 ML NEB NEB SCH ×2 (13:00→19:00)
[2021-09-14] MEDS ORDERED: BEBTELOVIMAB 175 MG INJ IV ONE (15:00)
[2021-09-14] MEDS: HYDROCODONE/APAP 7.5MG-325MG 1 EA TAB PO PRN (16:24)
[2021-09-14] MEDS ORDERED: DILTIAZEM HCL 5 MG/ML 5 ML VIAL IV ONE (17:55)
[2021-09-14] MEDS ORDERED: TRAZODONE HCL 50 MG TAB PO SCH (21:00)
[2021-09-14] MEDS: TRAZODONE HCL 50 MG TAB PO PRN (21:39)
[2021-09-14] MEDS: ACETAMINOPHEN 325 MG TAB PO PRN (21:39)
[2021-09-15] VITALS (7 sets, daily range): BP systolic 98–139; BP diastolic 43–78
[2021-09-15] MEDS: ALPRAZOLAM 0.5 MG TAB PO PRN ×2 (00:59→09:46)
[2021-09-15] MEDS: ALBUTEROL/IPRATROPIUM 3 ML NEB NEB SCH ×4 (01:00→19:00)
[2021-09-15] MEDS: LEVOTHYROXINE SODIUM 125 MCG TAB PO SCH (06:21)
[2021-09-15] MEDS ORDERED: CEFTRIAXONE 1 GM VIAL IM ONE (07:30)
[2021-09-15] MEDS ORDERED: SODIUM CHLORIDE 0.9% 100 ML ONE (08:30)
[2021-09-15] MEDS: KCL 20MEQ/.9 SOD CHL 1,000 ML IV SCH ×2 (08:35→18:52)
[2021-09-15] MEDS ORDERED: Vancomycin IV 1 GM in SODIUM CHLORIDE 0.9% 250ML 250 ML IV ONE (09:00)
[2021-09-15] MEDS: NIFEDIPINE CR 30 MG TAB PO SCH (09:45)
[2021-09-15] MEDS: BUSPIRONE HCL 10 MG TABLET PO SCH ×2 (09:45→16:25)
[2021-09-15] MEDS: MULTIVITAMINS/MINERALS TAB PO SCH (09:45)
[2021-09-15] MEDS: SUCRALFATE 1 GM TAB PO SCH ×2 (09:46→16:25)
[2021-09-15] MEDS: PANTOPRAZOLE SOD 40 MG TABEC PO SCH (09:46)
[2021-09-15] MEDS: METOPROLOL TARTRATE 50 MG TAB PO SCH ×2 (09:46→16:25)
[2021-09-15] MEDS: GABAPENTIN 100 MG CAP PO SCH ×3 (09:46→21:36)
[2021-09-15] MEDS: APIXAB 2.5 MG TABLET PO SCH ×2 (09:46→16:25)
[2021-09-15 10:57] LABS: BASOPHILS % 0.3 % (0.0-1.0); EOSINOPHILS % 0.1 % (0.0-6.0); HEMATOCRIT 39.7 % (34.2-44.1); HEMOGLOBIN 14.3 g/dL (12.0-16.0); LYMPHOCYTES # (AUTO) 1.2 (1.0-3.2); LYMPHOCYTES % 8.3 % (18.0-39.1); MEAN CORPUSCULAR HEMOGLOBIN 33.3 pg (28-32); MEAN CORPUSCULAR VOLUME 92.5 fL (81-99); NEUTROPHILS # (AUTO) 11.8 (2.1-6.9); NEUTROPHILS % 83.5 % (38.7-80.0); PLATELET COUNT 561 x10e3/uL (140-360); RED BLOOD COUNT 4.29 x10e6/uL (3.6-5.1); RED CELL DISTRIBUTION WIDTH 13.2 % (11.7-14.4)
[2021-09-15] MEDS: Vancomycin IV 1 GM in SODIUM CHLORIDE 0.9% 250ML 250 ML IV SCH (11:00)
[2021-09-15 11:27] LABS: ANION GAP 13.4 mmol/L (8-16); CALCIUM 9.9 mg/dL (8.4-10.2); CREATININE, SERUM 0.68 mg/dL (0.57-1.11); POTASSIUM 3.4 mmol/L (3.5-5.1)
[2021-09-15] MEDS: TRAZODONE HCL 50 MG TAB PO PRN (21:36)
[2021-09-15] MEDS: HYDROCODONE/APAP 7.5MG-325MG 1 EA TAB PO PRN (21:36)
[2021-09-16] VITALS (7 sets, daily range): BP systolic 115–194; BP diastolic 68–88
[2021-09-16] MEDS: ALBUTEROL/IPRATROPIUM 3 ML NEB NEB SCH ×4 (01:00→19:00)
[2021-09-16] MEDS: LEVOTHYROXINE SODIUM 125 MCG TAB PO SCH (05:44)
[2021-09-16 09:06] LABS: BASOPHILS # (AUTO) 0.1 (0.0-0.1); BASOPHILS % 0.9 % (0.0-1.0); EOSINOPHILS # (AUTO) 0.4 (0.0-0.4); EOSINOPHILS % 3.3 % (0.0-6.0); HEMATOCRIT 41.3 % (34.2-44.1); HEMOGLOBIN 13.5 g/dL (12.0-16.0); LYMPHOCYTES # (AUTO) 2.3 (1.0-3.2); LYMPHOCYTES % 19.6 % (18.0-39.1); MEAN CORPUSCULAR HEMOGLOBIN 32.8 pg (28-32); MEAN CORPUSCULAR HGB CONC 32.7 g/dL (31-35); MEAN CORPUSCULAR VOLUME 100.2 fL (81-99); MONOCYTES % 8.4 % (4.4-11.3); NEUTROPHILS # (AUTO) 7.8 (2.1-6.9); PLATELET COUNT 503 x10e3/uL (140-360); RED BLOOD COUNT 4.12 x10e6/uL (3.6-5.1); RED CELL DISTRIBUTION WIDTH 13.3 % (11.7-14.4)
[2021-09-16 09:31] LABS: ANION GAP 14.9 mmol/L (8-16); CALCIUM 8.7 mg/dL (8.4-10.2); CREATININE, SERUM 0.6 mg/dL (0.57-1.11); POTASSIUM 3.9 mmol/L (3.5-5.1)
[2021-09-16] MEDS: KCL 20MEQ/.9 SOD CHL 1,000 ML IV SCH ×2 (09:44→16:53)
[2021-09-16 09:45] LABS: MAGNESIUM 1.5 MG/DL (1.3-2.1); PHOSPHORUS 1.5 MG/DL (2.3-4.7)
[2021-09-16] MEDS: Vancomycin IV 1 GM in SODIUM CHLORIDE 0.9% 250ML 250 ML IV SCH ×2 (09:46→21:33)
[2021-09-16] MEDS: SUCRALFATE 1 GM TAB PO SCH ×2 (09:48→16:50)
[2021-09-16] MEDS: NIFEDIPINE CR 30 MG TAB PO SCH (09:49)
[2021-09-16] MEDS: PANTOPRAZOLE SOD 40 MG TABEC PO SCH (09:49)
[2021-09-16] MEDS: GABAPENTIN 100 MG CAP PO SCH ×3 (09:49→21:33)
[2021-09-16] MEDS: BUSPIRONE HCL 10 MG TABLET PO SCH ×2 (09:50→16:50)
[2021-09-16] MEDS: APIXAB 2.5 MG TABLET PO SCH ×2 (09:50→16:51)
[2021-09-16] MEDS: MULTIVITAMINS/MINERALS TAB PO SCH (09:50)
[2021-09-16] MEDS: METOPROLOL TARTRATE 50 MG TAB PO SCH ×2 (09:50→16:51)
[2021-09-16] MEDS: HYDROCODONE/APAP 7.5MG-325MG 1 EA TAB PO PRN ×2 (10:25→18:48)
[2021-09-16] MEDS: AMIODARONE HCL 200 MG TAB PO SCH ×2 (11:27→16:50)
[2021-09-16] MEDS: ALPRAZOLAM 0.5 MG TAB PO PRN (11:30)
[2021-09-16] MEDS ORDERED: IOPAMIDOL 370 MG/ML 100 ML INFUS..BTL INJ ONE ×2 (12:58→13:02)
[2021-09-16] MEDS: BALSAM PERU/CASTOR OIL 60 GM OINT...G. TP SCH (18:48)
[2021-09-17] VITALS (7 sets, daily range): BP systolic 104–170; BP diastolic 50–76
[2021-09-17] MEDS: ALBUTEROL/IPRATROPIUM 3 ML NEB NEB SCH ×4 (01:00→19:00)
[2021-09-17] MEDS: LEVOTHYROXINE SODIUM 125 MCG TAB PO SCH (05:39)
[2021-09-17] MEDS: KCL 20MEQ/.9 SOD CHL 1,000 ML IV SCH (05:43)
[2021-09-17] MEDS: SUCRALFATE 1 GM TAB PO SCH ×2 (08:25→16:34)
[2021-09-17] MEDS: MULTIVITAMINS/MINERALS TAB PO SCH (08:25)
[2021-09-17] MEDS: APIXAB 2.5 MG TABLET PO SCH ×2 (08:25→16:35)
[2021-09-17] MEDS: BUSPIRONE HCL 10 MG TABLET PO SCH ×2 (08:26→16:34)
[2021-09-17] MEDS: AMIODARONE HCL 200 MG TAB PO SCH ×2 (08:26→16:34)
[2021-09-17] MEDS: NIFEDIPINE CR 30 MG TAB PO SCH (08:27)
[2021-09-17] MEDS: PANTOPRAZOLE SOD 40 MG TABEC PO SCH (08:27)
[2021-09-17] MEDS: BALSAM PERU/CASTOR OIL 60 GM OINT...G. TP SCH (08:28)
[2021-09-17] MEDS: GABAPENTIN 100 MG CAP PO SCH ×3 (08:28→20:30)
[2021-09-17] MEDS: METOPROLOL TARTRATE 50 MG TAB PO SCH ×2 (08:28→16:35)
[2021-09-17] MEDS: Vancomycin IV 1 GM in SODIUM CHLORIDE 0.9% 250ML 250 ML IV SCH ×2 (10:30→20:30)
[2021-09-17] MEDS: HYDROCODONE/APAP 7.5MG-325MG 1 EA TAB PO PRN ×3 (11:14→20:30)
[2021-09-17] MEDS ORDERED: DEXAMETHASONE SOD PHOS 10 MG/1 ML VIAL IV SCH (13:30)
[2021-09-17] MEDS ORDERED: REMDESIVIR 100MG 200 MG in SODIUM CHLORIDE 0.9% 100 ML IV ONE (14:00)
[2021-09-17] MEDS: ACETAMINOPHEN 325 MG TAB PO PRN (21:50)
[2021-09-17] MEDS: ALPRAZOLAM 0.5 MG TAB PO PRN (21:50)
[2021-09-18] VITALS (8 sets, daily range): BP systolic 101–144; BP diastolic 50–85
[2021-09-18] MEDS: ALBUTEROL/IPRATROPIUM 3 ML NEB NEB SCH ×4 (01:05→19:05)
[2021-09-18] MEDS: LEVOTHYROXINE SODIUM 125 MCG TAB PO SCH (05:33)
[2021-09-18] MEDS: HYDROCODONE/APAP 7.5MG-325MG 1 EA TAB PO PRN ×3 (05:33→20:44)
[2021-09-18 06:09] LABS: BASOPHILS % 0.1 % (0.0-1.0); EOSINOPHILS % 0.1 % (0.0-6.0); HEMATOCRIT 34.9 % (34.2-44.1); HEMOGLOBIN 12.1 g/dL (12.0-16.0); LYMPHOCYTES # (AUTO) 1.9 (1.0-3.2); LYMPHOCYTES % 13.1 % (18.0-39.1); MEAN CORPUSCULAR HEMOGLOBIN 32.8 pg (28-32); MEAN CORPUSCULAR HGB CONC 34.7 g/dL (31-35); MEAN CORPUSCULAR VOLUME 94.6 fL (81-99); MONOCYTES # (AUTO) 0.7 (0.2-0.8); MONOCYTES % 4.8 % (4.4-11.3); NEUTROPHILS # (AUTO) 11.5 (2.1-6.9); NEUTROPHILS % 80.1 % (38.7-80.0); PLATELET COUNT 494 x10e3/uL (140-360); RED BLOOD COUNT 3.69 x10e6/uL (3.6-5.1); RED CELL DISTRIBUTION WIDTH 12.4 % (11.7-14.4)
[2021-09-18 06:47] LABS: ANION GAP 11.3 mmol/L (8-16); CALCIUM 8.8 mg/dL (8.4-10.2); CREATININE, SERUM 0.58 mg/dL (0.57-1.11); POTASSIUM 4.3 mmol/L (3.5-5.1)
[2021-09-18] MEDS: KCL 20MEQ/.9 SOD CHL 1,000 ML IV SCH (07:23)
[2021-09-18] MEDS: Vancomycin IV 1 GM in SODIUM CHLORIDE 0.9% 250ML 250 ML IV SCH ×2 (09:58→20:40)
[2021-09-18] MEDS: METOPROLOL TARTRATE 50 MG TAB PO SCH ×2 (10:02→16:46)
[2021-09-18] MEDS: AMIODARONE HCL 200 MG TAB PO SCH ×2 (10:02→16:45)
[2021-09-18] MEDS: SUCRALFATE 1 GM TAB PO SCH ×2 (10:02→16:45)
[2021-09-18] MEDS: NIFEDIPINE CR 30 MG TAB PO SCH (10:03)
[2021-09-18] MEDS: GABAPENTIN 100 MG CAP PO SCH ×3 (10:03→20:44)
[2021-09-18] MEDS: PANTOPRAZOLE SOD 40 MG TABEC PO SCH (10:04)
[2021-09-18] MEDS: APIXAB 2.5 MG TABLET PO SCH ×2 (10:04→16:45)
[2021-09-18] MEDS: MULTIVITAMINS/MINERALS TAB PO SCH (10:04)
[2021-09-18] MEDS: BUSPIRONE HCL 10 MG TABLET PO SCH ×2 (10:04→16:45)
[2021-09-18] MEDS: BALSAM PERU/CASTOR OIL 60 GM OINT...G. TP SCH (10:04)
[2021-09-18] MEDS: REMDESIVIR 100MG 100 MG in SODIUM CHLORIDE 0.9% 100 ML IV SCH (14:36)
[2021-09-18] MEDS: ALPRAZOLAM 0.5 MG TAB PO PRN (20:44)
[2021-09-19] VITALS (7 sets, daily range): BP systolic 100–149; BP diastolic 61–81
[2021-09-19] MEDS: ALBUTEROL/IPRATROPIUM 3 ML NEB NEB SCH ×4 (01:15→19:17)
[2021-09-19] MEDS: HYDROCODONE/APAP 7.5MG-325MG 1 EA TAB PO PRN ×3 (07:28→20:31)
[2021-09-19] MEDS: LEVOTHYROXINE SODIUM 125 MCG TAB PO SCH (07:28)
[2021-09-19] MEDS: APIXAB 2.5 MG TABLET PO SCH ×2 (09:03→17:04)
[2021-09-19] MEDS: BUSPIRONE HCL 10 MG TABLET PO SCH ×2 (09:03→17:04)
[2021-09-19] MEDS: METOPROLOL TARTRATE 50 MG TAB PO SCH ×2 (09:04→17:05)
[2021-09-19] MEDS: SUCRALFATE 1 GM TAB PO SCH ×2 (09:04→17:05)
[2021-09-19] MEDS: PANTOPRAZOLE SOD 40 MG TABEC PO SCH (09:04)
[2021-09-19] MEDS: MULTIVITAMINS/MINERALS TAB PO SCH (09:04)
[2021-09-19] MEDS: NIFEDIPINE CR 30 MG TAB PO SCH (09:04)
[2021-09-19] MEDS: BALSAM PERU/CASTOR OIL 60 GM OINT...G. TP SCH (09:05)
[2021-09-19] MEDS: AMIODARONE HCL 200 MG TAB PO SCH ×2 (09:05→17:04)
[2021-09-19] MEDS: GABAPENTIN 100 MG CAP PO SCH ×3 (09:05→20:30)
[2021-09-19] MEDS: PREDNISONE 10 MG TAB PO SCH (09:05)
[2021-09-19] MEDS: REMDESIVIR 100MG 100 MG in SODIUM CHLORIDE 0.9% 100 ML IV SCH (13:35)
[2021-09-19] MEDS: TRAZODONE HCL 50 MG TAB PO PRN (20:31)
[2021-09-20] VITALS (7 sets, daily range): BP systolic 117–138; BP diastolic 51–78
[2021-09-20] MEDS: ALBUTEROL/IPRATROPIUM 3 ML NEB NEB SCH ×4 (00:42→19:00)
[2021-09-20] MEDS: ALPRAZOLAM 0.5 MG TAB PO PRN (01:07)
[2021-09-20] MEDS: PANTOPRAZOLE SOD 40 MG TABEC PO SCH (06:17)
[2021-09-20] MEDS: SUCRALFATE 1 GM TAB PO SCH ×2 (06:17→16:55)
[2021-09-20] MEDS: LEVOTHYROXINE SODIUM 125 MCG TAB PO SCH (06:17)
[2021-09-20] MEDS: HYDROCODONE/APAP 7.5MG-325MG 1 EA TAB PO PRN (06:22)
[2021-09-20 08:58] LABS: BASOPHILS # (AUTO) 0.1 (0.0-0.1); BASOPHILS % 0.3 % (0.0-1.0); EOSINOPHILS # (AUTO) 0.4 (0.0-0.4); EOSINOPHILS % 2.6 % (0.0-6.0); HEMATOCRIT 30.7 % (34.2-44.1); HEMOGLOBIN 10.8 g/dL (12.0-16.0); LYMPHOCYTES # (AUTO) 3.7 (1.0-3.2); LYMPHOCYTES % 25.8 % (18.0-39.1); MEAN CORPUSCULAR HEMOGLOBIN 33.1 pg (28-32); MEAN CORPUSCULAR HGB CONC 35.2 g/dL (31-35); MEAN CORPUSCULAR VOLUME 94.2 fL (81-99); MONOCYTES # (AUTO) 1.9 (0.2-0.8); MONOCYTES % 13.4 % (4.4-11.3); NEUTROPHILS % 55.6 % (38.7-80.0); PLATELET COUNT 550 x10e3/uL (140-360); RED BLOOD COUNT 3.26 x10e6/uL (3.6-5.1); RED CELL DISTRIBUTION WIDTH 13.4 % (11.7-14.4)
[2021-09-20 09:24] LABS: ANION GAP 10.9 mmol/L (8-16); CALCIUM 8.7 mg/dL (8.4-10.2); CREATININE, SERUM 0.61 mg/dL (0.57-1.11); POTASSIUM 4.9 mmol/L (3.5-5.1)
[2021-09-20] MEDS ORDERED: ALPRAZOLAM 0.5 MG TAB PO PRN (09:30)
[2021-09-20] MEDS ORDERED: HYDROCODONE/APAP 7.5MG-325MG 1 EA TAB PO PRN (09:30)
[2021-09-20] MEDS: AMIODARONE HCL 200 MG TAB PO SCH ×2 (09:41→16:56)
[2021-09-20] MEDS: NIFEDIPINE CR 30 MG TAB PO SCH (09:42)
[2021-09-20] MEDS: METOPROLOL TARTRATE 50 MG TAB PO SCH ×2 (09:42→16:56)
[2021-09-20] MEDS: MULTIVITAMINS/MINERALS TAB PO SCH (09:42)
[2021-09-20] MEDS: PREDNISONE 10 MG TAB PO SCH (09:42)
[2021-09-20] MEDS: Vancomycin IV 1 GM in SODIUM CHLORIDE 0.9% 250ML 250 ML IV SCH (12:56)
[2021-09-20] MEDS: ACETAMINOPHEN 325 MG TAB PO PRN ×2 (13:12→22:52)
[2021-09-20] MEDS ORDERED: ONDANSETRON HCL 4 MG ORAL DISINTEGRATING TAB PO PRN (14:15)
[2021-09-20] MEDS: REMDESIVIR 100MG 100 MG in SODIUM CHLORIDE 0.9% 100 ML IV SCH (15:12)
[2021-09-20] MEDS: BALSAM PERU/CASTOR OIL 60 GM OINT...G. TP SCH (15:25)
[2021-09-20] MEDS: BUSPIRONE HCL 10 MG TABLET PO SCH (16:56)
[2021-09-20] MEDS: APIXAB 2.5 MG TABLET PO SCH (16:56)
[2021-09-21] VITALS (7 sets, daily range): BP systolic 130–170; BP diastolic 54–99
[2021-09-21] MEDS: ALBUTEROL/IPRATROPIUM 3 ML NEB NEB SCH ×4 (00:30→19:35)
[2021-09-21 06:17] LABS: ANION GAP 13.4 mmol/L (8-16); CREATININE, SERUM 0.68 mg/dL (0.57-1.11); POTASSIUM 5.4 mmol/L (3.5-5.1)
[2021-09-21] MEDS: LEVOTHYROXINE SODIUM 125 MCG TAB PO SCH (07:18)
[2021-09-21] MEDS: APIXAB 2.5 MG TABLET PO SCH ×2 (08:18→17:33)
[2021-09-21] MEDS: MULTIVITAMINS/MINERALS TAB PO SCH (08:18)
[2021-09-21] MEDS: SUCRALFATE 1 GM TAB PO SCH ×2 (08:18→17:33)
[2021-09-21] MEDS: PANTOPRAZOLE SOD 40 MG TABEC PO SCH (08:18)
[2021-09-21] MEDS: PREDNISONE 10 MG TAB PO SCH (08:19)
[2021-09-21] MEDS: BUSPIRONE HCL 10 MG TABLET PO SCH ×2 (08:19→17:33)
[2021-09-21] MEDS: AMIODARONE HCL 200 MG TAB PO SCH (08:20)
[2021-09-21] MEDS: BALSAM PERU/CASTOR OIL 60 GM OINT...G. TP SCH (08:20)
[2021-09-21] MEDS: NIFEDIPINE CR 30 MG TAB PO SCH (08:20)
[2021-09-21] MEDS: METOPROLOL TARTRATE 50 MG TAB PO SCH ×2 (08:20→17:34)
[2021-09-21] MEDS: Vancomycin IV 1 GM in SODIUM CHLORIDE 0.9% 250ML 250 ML IV SCH (11:42)
[2021-09-21] MEDS: REMDESIVIR 100MG 100 MG in SODIUM CHLORIDE 0.9% 100 ML IV SCH (14:45)
[2021-09-22] MEDS: ALBUTEROL/IPRATROPIUM 3 ML NEB NEB SCH ×2 (00:35→06:44)
[2021-09-22 01:36] VITALS: BP 182/81
[2021-09-22 05:41] LABS: BASOPHILS # (AUTO) 0.1 (0.0-0.1); BASOPHILS % 0.3 % (0.0-1.0); EOSINOPHILS # (AUTO) 0.3 (0.0-0.4); EOSINOPHILS % 1.5 % (0.0-6.0); HEMATOCRIT 31.2 % (34.2-44.1); HEMOGLOBIN 10.9 g/dL (12.0-16.0); LYMPHOCYTES # (AUTO) 2.3 (1.0-3.2); LYMPHOCYTES % 14.4 % (18.0-39.1); MEAN CORPUSCULAR HGB CONC 34.9 g/dL (31-35); MEAN CORPUSCULAR VOLUME 94.5 fL (81-99); MONOCYTES # (AUTO) 1.5 (0.2-0.8); MONOCYTES % 9.4 % (4.4-11.3); NEUTROPHILS # (AUTO) 11.9 (2.1-6.9); NEUTROPHILS % 73.2 % (38.7-80.0); PLATELET COUNT 525 x10e3/uL (140-360); RED CELL DISTRIBUTION WIDTH 13.5 % (11.7-14.4)
[2021-09-22 05:42] VITALS: BP 158/75
[2021-09-22] MEDS: LEVOTHYROXINE SODIUM 125 MCG TAB PO SCH (06:20)
[2021-09-22 07:24] LABS: ANION GAP 11.2 mmol/L (8-16); CALCIUM 8.9 mg/dL (8.4-10.2); CREATININE, SERUM 0.62 mg/dL (0.57-1.11)
[2021-09-22 07:29] LABS: POTASSIUM 4.2 mmol/L (3.5-5.1)
[2021-09-22 08:00] VITALS: BP 148/76
[2021-09-22 08:03] VITALS: BP 148/76
[2021-09-22] MEDS ORDERED: AMIODARONE HCL 200 MG TAB PO SCH (09:00)
[2021-09-22] MEDS: PANTOPRAZOLE SOD 40 MG TABEC PO SCH (09:37)
[2021-09-22] MEDS: MULTIVITAMINS/MINERALS TAB PO SCH (09:37)
[2021-09-22] MEDS: APIXAB 2.5 MG TABLET PO SCH (09:38)
[2021-09-22] MEDS: NIFEDIPINE CR 30 MG TAB PO SCH (09:38)
[2021-09-22] MEDS: BUSPIRONE HCL 10 MG TABLET PO SCH (09:38)
[2021-09-22] MEDS: SUCRALFATE 1 GM TAB PO SCH (09:39)
[2021-09-22] MEDS: PREDNISONE 10 MG TAB PO SCH (09:39)
[2021-09-22] MEDS: BALSAM PERU/CASTOR OIL 60 GM OINT...G. TP SCH (09:40)
[2021-09-22] MEDS: METOPROLOL TARTRATE 50 MG TAB PO SCH (09:40)
[2021-09-22] MEDS: Vancomycin IV 1 GM in SODIUM CHLORIDE 0.9% 250ML 250 ML IV SCH (11:10)
== END 2021-09-22 11:33 | DRG 871 ==
LOC: ER 12:50 → ERHOLD 15:43 → MED/SURG2 22:06
PROVIDERS: ADMIT Internal Medicine; ATTEND Internal Medicine
PROC: 8E0ZXY6 Isolation (ICD-10-PCS; principal; 2021-09-13)
PROC: 02HV33Z Insertion of Infusion Device into Superior Vena Cava, Percutaneous Approach (ICD-10-PCS; 2021-09-13)
PROC: 3E03329 Introduction of Other Anti-infective into Peripheral Vein, Percutaneous Approach (ICD-10-PCS; 2021-09-13)
PROC: 3E04329 Introduction of Other Anti-infective into Central Vein, Percutaneous Approach (ICD-10-PCS; 2021-09-16)
DX: A41.02 Sepsis due to Methicillin resistant Staphylococcus aureus (principal); G92.8 Other toxic encephalopathy; G93.41 Metabolic encephalopathy; U07.1 COVID-19; J80 Acute respiratory distress syndrome; J12.82 Pneumonia due to coronavirus disease 2019; D68.9 Coagulation defect, unspecified; N39.0 Urinary tract infection, site not specified; R65.20 Severe sepsis without septic shock; G89.29 Other chronic pain; E87.6 Hypokalemia; K59.00 Constipation, unspecified; E87.8 Other disorders of electrolyte and fluid balance, not elsewhere classified; F41.9 Anxiety disorder, unspecified; F03.90 Unspecified dementia, unspecified severity, without behavioral disturbance, psychotic disturbance, mood disturbance, and anxiety; M47.9 Spondylosis, unspecified; M19.072 Primary osteoarthritis, left ankle and foot; M19.071 Primary osteoarthritis, right ankle and foot; Z79.82 Long term (current) use of aspirin; I48.0 Paroxysmal atrial fibrillation; Z79.01 Long term (current) use of anticoagulants; M19.012 Primary osteoarthritis, left shoulder; M19.011 Primary osteoarthritis, right shoulder; R33.9 Retention of urine, unspecified; F32.A Depression, unspecified; Z88.2 Allergy status to sulfonamides
CPT/HCPCS: 36415; 36569; 71045; 71250; 74177; 80048; 80053; 80202; 81001; 83605; 83735; 84100; 84443; 84484; 85025; 87040; 87071; 87086; 87186; 87205; 93005; 93306; 94640; 94760; 94799; 96361; 99251; 99285; J0248; J0456; J0696; J1100; J2405; J3370; J3480; J7030; J7050; J7121; J7512; Q9967